=== PATIENT | male | born 2000 | race Caucasian/White ===

== ENCOUNTER 2022-01-09 21:03 | Emergency (ER) | payer BC ==
[~2022-01-09] VITALS: Ht 170.2 cm; Wt 75.9 kg
[2022-01-09 21:07] VITALS: TEMP 98.2
[2022-01-09 22:41] VITALS: BP 132/71; PULSE 80
== END 2022-01-09 22:49 | disposition home or self-care (01) ==
LOC: COL.ER 21:03
DX: F12.90 Cannabis use, unspecified, uncomplicated (principal); F17.290 Nicotine dependence, other tobacco product, uncomplicated; Z28.310 Unvaccinated for COVID-19